=== PATIENT | male | born 1975 | race Caucasian/White ===

== ENCOUNTER 2021-09-03 09:25 | Outpatient (CLI) | payer BC ==
[2021-09-03] MEDS ORDERED: Iopamidol-370 76% 500 ML 1 ML ONE (12:06)
== END 2021-09-03 09:26 | disposition home or self-care (01) ==
LOC: BICCT 09:25
PROVIDERS: ATTEND Student in an Organized Health Care Education/Training Program
DX: K12.2 Cellulitis and abscess of mouth (principal)
CPT/HCPCS: 70491